=== PATIENT | male | born 1990 | race American Indian/Alaskan Native ===

== ENCOUNTER 2018-07-04 14:37 | Emergency (ER) | payer BC, OTHER ==
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
[2018-07-04] MEDS ORDERED: IBUPROFEN PO ONE (15:13)
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
[2018-07-04] MEDS ORDERED: FLEXERIL PO ONE (19:04)
[2018-07-04] MEDS ORDERED: TYLENOL #3 PO ONE (19:04)
[2018-07-04 19:19] VITALS: BP 122/78
== END 2018-07-04 19:27 | disposition home or self-care (01) ==
LOC: ED 14:37
DX: S16.1XXA Strain of muscle, fascia and tendon at neck level, initial encounter (principal); M54.5 Low back pain; R51 Headache; M25.511 Pain in right shoulder; F17.200 Nicotine dependence, unspecified, uncomplicated; V89.2XXA Person injured in unspecified motor-vehicle accident, traffic, initial encounter; Y93.89 Activity, other specified; Y99.8 Other external cause status; Y92.410 Unspecified street and highway as the place of occurrence of the external cause
CPT/HCPCS: 70450; 72040

== ENCOUNTER 2019-01-18 12:48 | Emergency (ER) | payer BC ==
--- NOTE | 2019-01-18 13:31 | Emergency Department Report ---
Blank Doc - Documentation Documentation: This is a 28-year-old male that presents with URI symptoms. This initial assessment/diagnostic orders/clinical plan/treatment(s) is/are subject to change based on patient's health status, clinical progression and re- assessment by fellow clinical providers in the ED. Further treatment and workup at subsequent clinical providers discretion. Patient/guardians urged not to elope from the ED as their condition may be serious if not clinically assessed and managed. Initial orders include: 1- Patient sent to [facility] for further evaluation and treatment 2- CXR
[2019-01-18 13:36] VITALS: BP 138/87
--- NOTE | 2019-01-18 15:12 | XRay Report ---
CHEST 2 VIEWS INDICATION: cough. COMPARISON: None FINDINGS: Support devices: None. Heart: Within normal limits. Lungs/pleura: No acute air space or interstitial disease. No pneumothorax. Additional findings: None. IMPRESSION: Normal chest x-ray. Signer Name: Edinson Livingston Jr, MD Signed: 01/18/2019 3:08 PM Workstation Name: [id number]
--- NOTE | 2019-01-18 16:01 | Emergency Department Report ---
Blank Doc - Documentation Documentation: I went to examine Mr. Serrano. Patient is not available in the room.
== END 2019-01-18 15:45 | disposition left against medical advice (07) ==
LOC: ED 12:48
DX: R07.89 Other chest pain (principal); Z53.21 Procedure and treatment not carried out due to patient leaving prior to being seen by health care provider
CPT/HCPCS: 71046